=== PATIENT | male | born 1960 | race African-American/Black ===

== ENCOUNTER 2017-03-29 11:54 | Emergency (ER) | payer BC, OTHER ==
[~2017-03-29] VITALS: Ht 188 cm; Wt 98.4 kg
[~2017-03-29 11:54] MED LIST: ATOR20TA PO; Aspirin PO; LISI10TA2 PO; LOSA25TA4 PO; Metoprolol Tartrate PO; SUCR1TAB PO; TICA90TA PO
[2017-03-29 12:06] VITALS: BP 127/74
[2017-03-29] MEDS ORDERED: NAPR500T3 PO (13:09)
[2017-03-29] MEDS ORDERED: CYCL10TA2 PO (13:09)
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
[2017-03-29] MEDS ORDERED: NAPROXEN 500 MG TABLET PO ONE (13:15)
== END 2017-03-29 13:22 | disposition home or self-care (01) ==
LOC: ER 11:54
DX: M54.5 Low back pain (principal); I11.9 Hypertensive heart disease without heart failure; F12.10 Cannabis abuse, uncomplicated; Z95.5 Presence of coronary angioplasty implant and graft; Z88.8 Allergy status to other drugs, medicaments and biological substances; V43.52XA Car driver injured in collision with other type car in traffic accident, initial encounter; Y93.89 Activity, other specified; Y99.8 Other external cause status; Y92.488 Other paved roadways as the place of occurrence of the external cause
CPT/HCPCS: 99283

== ENCOUNTER → 2017-11-19 | Outpatient (CLI) | payer BC | END | disposition home or self-care (01) | LOC: ECHO 08:05 | DX: I11.9 Hypertensive heart disease without heart failure (principal) | CPT/HCPCS: 93306 ==

== ENCOUNTER → 2020-11-12 | Outpatient (CLI) | payer BC ==
[~2020-11-12] MED LIST changes: +CYCL10TA2 PO; +LISI10TA16 PO; -LISI10TA2 PO; -LOSA25TA4 PO; +LOSA25TA54 PO; +NAPR-514 PO
--- NOTE | 2020-11-12 14:39 | KCIC ---
EXAMINATION: MRI RIGHT WRIST WITHOUT IV CONTRAST CLINICAL HISTORY: Worsening chronic radial sided wrist pain and swelling concerning for internal dera ngement. Patient is a soto, repetitive use. TECHNIQUE: Multiplanar multisequential images obtained through the wrist without intravenous contrast . COMPARISON: None FINDINGS: TRIANGULAR FIBROCARTILAGE: Degenerative changes. SCAPHOLUNATE LIGAMENT: Poorly visualized. LUNOTRIQUETRAL LIGAMENT: Intact. FLEXOR TENDONS/CARPAL TUNNEL: Within normal limits. EXTENSOR TENDONS: Moderate tendinosis and [id number] fluid surrounding the abductor pollicis lo ngus and extensor pollicis brevis tendons distal to the crossover of the first and second extensor co mpartments. Minimal peritendinous edema/fluid surrounding the extensor carpi radialis brevis and long us tendons at this level. BONES/MARROW: No evidence of acute fracture or suspicious marrow replacing process. Mild edema in the proximal pole the lunate. JOINT FLUID: Asymmetrically prominent small amount of joint fluid in the scapholunate joint. 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 Poorly visualized scapholunate ligament with asymmetrically prominent scapholunate joint fluid, suspi cious for scapholunate dissociation. Correlate clinically and consider dedicated wrist radiographs fo r further evaluation as indicated. Electronically signed by: Orestes Calle DO (11/12/2020 2:36 PM) [id number]
== END ==
LOC: KCIC MRI 08:33
PROVIDERS: ATTEND Nurse Practitioner Gerontology
DX: M65.88 Other synovitis and tenosynovitis, other site (principal); M25.531 Pain in right wrist
CPT/HCPCS: 73221